=== PATIENT | male | born 1985 | race African-American/Black ===

== ENCOUNTER 2018-12-07 17:04 | Emergency (ER) | payer OTHER ==
[~2018-12-07] VITALS: Ht 160 cm; Wt 70.1 kg
--- NOTE | 2018-12-07 17:16 | PHYS DOC ---
Past History Smoking: Cigarettes (TIFFANIE ROCHA DO) Adult General Chief Complaint Chief Complaint: ALTERED MENTAL STATUS HPI HPI Patient is a 33-year-old male brought in by EMS due to being found under a park bench with altered mental status. EMS reports his fingerstick blood sugar was in the 100s. Patient responded to verbal stimuli. Patient denies any pain. Denies taking any alcohol or drugs. History is limited from the patient due to his altered mental status.[] (TIFFANIE ROCHA DO) HPI " Hey.. I was just sleeping under the park bench... I need to get back to the [facility]... I have a job I have to report to at [employer]... to keep my parole from being busted... you ve got to discharge me now..." 18:49 Hrs. (RCIHA FERNANDEZ MD) Review of Systems Review of Systems Constitutional: Denies fever or chills [] Eyes: Denies change in visual acuity, redness, or eye pain [] HENT: Denies nasal congestion or sore throat [] Respiratory: Denies cough or shortness of breath [] Cardiovascular: Denies chest pain or palpitations[] GI: Denies abdominal pain, nausea, vomiting, bloody stools or diarrhea [] : Denies dysuria or hematuria [] Musculoskeletal: Denies back pain or joint pain [] Integument: Denies rash or skin lesions [] Neurologic: Denies headache, focal weakness or sensory changes [] Endocrine: Denies polyuria or polydipsia [] All other systems were reviewed and found to be within normal limits, except as documented in this note. (TIFFANIE ROCHA DO) Family History Family History Non-contributory (RICHA FERNANDEZ MD) Current Medications Current Medications See Nursing for home meds. (RICHA FERNANDEZ MD) Allergies Allergies NKDA (RICHA FERNANDEZ MD) Physical Exam Physical Exam Constitutional: Well developed, well nourished, no acute distress, non-toxic appearance. [] HENT: Normocephalic, blood at right side of lower lip. Wound does not appear to cross the vermilion border. No evidence of intraoral laceration or loose teeth. bilateral external ears normal, TMs are clear, no blood or fluid, oropharynx moist, no oral exudates, nose normal. [] Eyes: PERRLA, EOMI, conjunctiva normal, no discharge. [] Neck: Patient in cervical collar due to altered mental status, no tenderness, supple, no stridor. [] Cardiovascular:Heart rate regular rhythm, no murmur [] Lungs & Thorax: Bilateral breath sounds clear to auscultation [] Abdomen: Bowel sounds normal, soft, no tenderness, no masses, no pulsatile masses. [] Skin: Warm, dry, no erythema, no rash. [] Back: No tenderness, no CVA tenderness. [] Extremities: No tenderness, no cyanosis, no clubbing, ROM intact, no edema. [] Neurologic: GCS of 13-E3 V4 M6, normal motor function, normal sensory function, no focal deficits noted. [] Psychologic: Affect FLAT, mood normal. [] (TIFFANIE ROCHA DO) EKG EKG EKG shows a sinus rhythm at 81 bpm, normal axis, QTC of 414 ms, no ST elevation. No old EKG available for comparison. Interpreted by me at 1717[] (TIFFANIE ROCHA DO) Radiology/Procedures Radiology/Procedures [] (TIFFANIE ROCHA DO) Impressions: My interpretation chest x-ray shows no acute cardio pulmonary changes no free air in the diaphragm. Some findings consistent with chronic lung disease e mphysema. CT head shows no shift, mass, edema, bleed, or fracture. There is findings of ethmoid sinusitis. Some mild reversible lordotic curve of the neck. No obvious fracture or dislocation. See formal report when available. (RICHA FERNANDEZ MD) Course & Med Decision Making Course & Med Decision Making Pertinent Labs and Imaging studies reviewed. (See chart for details) ED course: Patient arrived by EMS, was placed in our bed from their cot, and tolerated exam well. Cervical collar was left in place. At the time of this dictation laboratory and imaging results are pending. Patient care was endorsed to the oncoming, nighttime physician at 1800 with ultimate disposition pending.[] (TIFFANIE ROCHA DO) Course & Med Decision Making Impression- 1. Mental status change 2. Ethmoid sinusitis 3. Mild anemia 12.6 4. Tobacco Use Pt. demanding discharge the last 1/2 hour to keep from being " busted" on his parole status at [address] Pt. sinusitis will be treated with flonase and Keflex 500 tid. . Must follow up . Encouraged pt to stop smoking. Pt. currently A & O x4, no focal deficits. Denies hx of seizure disorder. (RICHA FERNANDEZ MD) Dragon Disclaimer Dragon Disclaimer This electronic medical record was generated, in whole or in part, using a voice recognition dictation system. (TIFFANIE ROCHA DO) Departure Departure: Scripts Cephalexin (KEFLEX) 500 Mg Capsule 500 MG PO TID for ethomoid sinusiitis. for 10 Days, BOT Prov: RICHA FERNANDEZ MD 12/07/18 Fluticasone Propionate (Flonase Allergy Relief) 9.9 Ml [place].susp 2 SPRAYS NS DAILY for ethomid sinus itis, #120 BOTTLE Prov: RICHA FERNANDEZ MD 12/07/18 Discharge Summary Visit Information Final Diagnosis Problems Medical Problems: (1) Ethmoid sinusitis Status: Acute (2) Mental status change resolved Status: Acute (RICHA FERNANDEZ MD) Brief Hospital Course Allergies Allergies Coded Allergies Type Severity Reaction Last Updated Verified No Known Drug Allergies 12/07/18 No Vital Signs Vital Signs Date Time Temp Pulse Resp B/P (MAP) Pulse Ox O2 Delivery O2 Flow Rate FiO2 12/07/18 19:15 81 16 119/79 (92) 97 Room Air 12/07/18 18:03 4.0 12/07/18 17:04 98.9 Lab Results Laboratory Tests Test 12/07/18 17:20 12/07/18 18:10 White Blood Count 4.3 x10^3/uL (4.0-11.0) Red Blood Count 4.09 x10^6/uL (4.30-5.70) Hemoglobin 12.6 g/dL (13.0-17.5) Hematocrit 38.0 % (39.0-53.0) Mean Corpuscular Volume 93 fL (79-100) Mean Corpuscular Hemoglobin 31 pg (25-35) Mean Corpuscular Hemoglobin Concent 33 g/dL (31-37) Red Cell Distribution Width 12.3 % (11.5-14.5) Platelet Count 252 x10^3/uL (140-400) Neutrophils (%) (Auto) 45 % (31-73) Lymphocytes (%) (Auto) 46 % (24-48) Monocytes (%) (Auto) 6 % (0-9) Eosinophils (%) (Auto) 3 % (0-3) Basophils (%) (Auto) 0 % (0-3) Neutrophils # (Auto) 1.9 x10^3uL (1.8-7.7) Lymphocytes # (Auto) 2.0 x10^3/uL (1.0-4.8) Monocytes # (Auto) 0.3 x10^3/uL (0.0-1.1) Eosinophils # (Auto) 0.1 x10^3/uL (0.0-0.7) Basophils # (Auto) 0.0 x10^3/uL (0.0-0.2) Prothrombin Time 9.7 SEC (9.4-11.4) Prothromb Time International Ratio 1.0 (0.9-1.1) Activated Partial Thromboplast Time 23 SEC (23-33) Sodium Level 141 mmol/L (136-145) Potassium Level 3.8 mmol/L (3.5-5.1) Chloride Level 104 mmol/L (98-107) Carbon Dioxide Level 29 mmol/L (21-32) Anion Gap 8 (6-14) Blood Urea Nitrogen 15 mg/dL (8-26) Creatinine 0.9 mg/dL (0.7-1.3) Estimated GFR (Cockcroft-Gault) 116.2 BUN/Creatinine Ratio 17 (6-20) Glucose Level 87 mg/dL (70-99) Calcium Level 9.4 mg/dL (8.5-10.1) Magnesium Level 2.0 mg/dL (1.8-2.4) Total Bilirubin 0.3 mg/dL (0.2-1.0) Aspartate Amino Transf (AST/SGOT) 17 U/L (15-37) Alanine Aminotransferase (ALT/SGPT) 31 U/L (16-63) Alkaline Phosphatase 57 U/L (46-116) Ammonia 24 mcmol/L (11-34) Troponin I Quantitative < 0.017 ng/mL (0-0.055) DT-Eiu-B-Type Natriuretic Peptide 11 pg/mL (0-124) Total Protein 7.5 g/dL (6.4-8.2) Albumin 3.8 g/dL (3.4-5.0) Albumin/Globulin Ratio 1.0 (1.0-1.7) Ethyl Alcohol Level < 10 mg/dL (0-10) Urine Collection Type Unknown Urine Color [place] Urine Clarity Cloudy Urine pH 6.0 Urine Specific [place] 1.020 Urine Protein Neg (NEG-TRACE) Urine Glucose (UA) Neg mg/dL (NEG) Urine Ketones (Stick) Neg mg/dL (NEG) Urine Blood Trace (NEG) Urine Nitrite Neg (NEG) Urine Bilirubin Neg (NEG) Urine Urobilinogen Dipstick 0.2 mg/dL (0.2 mg/dL) Urine Leukocyte Esterase Neg (NEG) Urine RBC 0 /HPF (0-2) Urine WBC 0 /HPF (0-4) Urine Squamous Epithelial Cells Occ /LPF Urine Bacteria 0 /HPF (0-FEW) Urine Opiates Screen Neg (NEG) Urine Methadone Screen Neg (NEG) Urine Barbiturates Neg (NEG) Urine Phencyclidine Screen Neg (NEG) Urine Amphetamine/Methamphetamine Neg (NEG) Urine Benzodiazepines Screen Neg (NEG) Urine Cocaine Screen Neg (NEG) Urine Cannabinoids Screen Neg (NEG) Urine Ethyl Alcohol Neg (NEG) Brief Hospital Course Mr. Aguila is a 33 old male who presented with hx of sleeping under park bench. Discharge to [facility]. Ethmoid Sinusitis. (RICHA FERNANDEZ MD) Discharge Information Condition at Discharge: Improved, Stable Disposition/Orders: D/C to Home Dischare Medications Current Medications Ceftriaxone Sodium 1 gm/ Sodium Chloride 50 ml @ 100 mls/hr 1X ONCE IV ; Start 12/07/18 at 18:45; Stop 12/07/18 at 19:14; Status DC Sodium Chloride 50 ml @ As Directed STK-MED ONCE .ROUTE ; Start 12/07/18 at 18:51; Stop 12/07/18 at 18:52; Status DC Ceftriaxone Sodium (Rocephin) 1 gm STK-MED ONCE .ROUTE ; Start 12/07/18 at 18:51; Stop 12/07/18 at 18:52; Status DC Ceftriaxone Sodium (Rocephin Im) 1 gm 1X ONCE IM Last administered on 12/07/18at 19:00; Start 12/07/18 at 19:15; Stop 12/07/18 at 19:16; Status DC Active Scripts Active Keflex (Cephalexin) 500 Mg Capsule 500 Mg PO TID 10 Days Flonase Allergy Relief (Fluticasone Propionate) 9.9 Ml [place].susp 2 Sprays NS DAILY (RICHA FERNANDEZ MD) Dragon Disclaimer This chart was dictated in whole or in part using Voice Recognition software in a busy, high-work load, and often noisy Emergency Department environment. It may contain unintended and wholly unrecognized errors or omissions. (RICHA FERNANDEZ MD) TIFFANIE ROCHA DO Dec 07, 2018 17:16 RICHA FERNANDEZ MD Dec 07, 2018 18:35
[2018-12-07 17:56] LABS: BASO % 0 % (0-3); EOS # 0.1 x10^3/uL (0.0-0.7); EOS % 3 % (0-3); HEMOGLOBIN 12.6 g/dL (13.0-17.5); LYMPH % 46 % (24-48); MEAN CORPUSCULAR HEMOGLOBIN 31 pg (25-35); MEAN CORPUSCULAR HGB CONC 33 g/dL (31-37); MEAN CORPUSCULAR VOLUME 93 fL (79-100); MONO # 0.3 x10^3/uL (0.0-1.1); MONO % 6 % (0-9); NEUT # 1.9 x10^3uL (1.8-7.7); NEUT % 45 % (31-73); PLATELET COUNT 252 x10^3/uL (140-400); RED BLOOD COUNT 4.09 x10^6/uL (4.30-5.70); RED CELL DISTRIBUTION WIDTH 12.3 % (11.5-14.5); WHITE BLOOD COUNT 4.3 x10^3/uL (4.0-11.0)
--- NOTE | 2018-12-07 17:58 | RAD ---
PORTABLE CHEST 1V History: Altered mental status Comparison: None. Findings: 2 AP portable views of the chest are submitted. Pericardial cardiac silhouette is somewhat prominent although appearance may be accentuated by technique and degree of inspiration. There is no significant pleural fluid, pneumothorax, lobar consolidation. Impression: 1. There is no significant infiltrate. Pericardial cardiac silhouette is somewhat prominent although findings could be accentuated by technique. Electronically signed by: Richard Mendoza MD (12/07/2018 5:55 PM) [facility]
[2018-12-07 18:08] LABS: ALBUMIN 3.8 g/dL (3.4-5.0); CALCIUM 9.4 mg/dL (8.5-10.1); CREATININE 0.9 mg/dL (0.7-1.3); GFR 116.2; POTASSIUM 3.8 mmol/L (3.5-5.1); TOTAL BILIRUBIN 0.3 mg/dL (0.2-1.0); TOTAL PROTEIN 7.5 g/dL (6.4-8.2)
--- NOTE | 2018-12-07 18:20 | RAD ---
CT head and cervical spine without contrast History: Altered mental status Technique: Noncontrast CT imaging was performed of the head and cervical spine. Multiplanar reconstruction images are submitted. Exposure: One or more of the following individualized dose reduction techniques were utilized for this examination: 1. Automated exposure control 2. Adjustment of the mA and/or kV according to patient size 3. Use of iterative reconstruction technique. Head CT Comparison: None Findings: There is mild motion degradation. No convincing acute extra-axial or parenchymal hemorrhage is identified. There is no significant intra-axial mass effect, midline shift, or extra-axial fluid collection. The rogel-white differentiation of the major vascular territories is preserved. The ventricles, sulci, and cisterns are within normal limits in size and configuration. Mastoid air cells are aerated. There is patchy moderate to severe ethmoid air cell mucosal thickening.There is no significant focal calvarial abnormality. Impression: 1. No acute intracranial abnormality is identified. 2. There is patchy moderate to severe ethmoid air cell mucosal thickening. Cervical spine CT Comparison: None Findings: No acute cervical spine fracture is identified. There is mild reversal of the lordotic curvature centered near C5-6. There is mild narrowing of the C3-4, C5-6, C6-7 intervertebral disc spaces. Vertebral body stature and AP alignment are within normal limits. Atlanto-axial distance is within normal limits. There is appropriate alignment of lateral masses of C1 relative to C2. Occipital condylar-C1 relationship is maintained. There is some mild paraseptal emphysema near the visualized lung apices greater on the right. Impression: 1. No acute cervical spine fracture is identified. 2. There is nonspecific mild reversal of the lordotic curvature. There is mild degenerative disc disease. 3. There is mild paraseptal emphysema near visualized lung apices. Electronically signed by: Richard Mendoza MD (12/07/2018 6:18 PM) [facility]
[2018-12-07 18:31] LABS: BARBITURATES NEG (NEG); BENZODIAZEPINES NEG (NEG); CANNABINOIDS NEG (NEG); COCAINE NEG (NEG); METHADONE NEG (NEG); OPIATES NEG (NEG); PHENCYCLIDINE NEG (NEG)
[2018-12-07 18:34] LABS: BACTERIA,URINE 0 /HPF (0-FEW); BILIRUBIN,URINE NEG (NEG); CLARITY,URINE CLOUDY; COLOR,URINE AMBER; GLUCOSE,URINE NEG (NEG); NITRITE,URINE NEG (NEG); RBC,URINE 0 /HPF (0-2); SQUAMOUS EPITHELIAL CELL,UR OCC /LPF; UROBILINOGEN,URINE 0.2 mg/dL (0.2 mg/dL); WBC,URINE 0 /HPF (0-4)
[2018-12-07 18:35] LABS: AMPHETAMINE/METHAMPHETAMINE NEG (NEG)
[2018-12-07] MEDS ORDERED: CEPH-264 PO (18:46)
[2018-12-07] MEDS ORDERED: FLUT9.9S NS (18:46)
[2018-12-07] MEDS ORDERED: cefTRIAXone SODIUM 1 GM VIAL ONE (18:51)
[2018-12-07] MEDS ORDERED: IV NORMAL SALINE 50ML 50 ML ONE (18:51)
[2018-12-07 19:15] VITALS: BP 119/79
[2018-12-07] MEDS ORDERED: cefTRIAXone IM 1 GM VIAL IM ONE (19:15)
--- NOTE | 2018-12-10 07:39 | EKG ---
[address] [address] Test Date: 2018-12-07 Test Time: 17:16:25 Pat Name: JOI DURAN Department: Room: Gender: M [employer]: : [id number] Requested By: TIFFANIE ROCHA Order Number: [id number] Reading MD: Measurements Intervals [place] Rate: 81 P: 43 OR: 144 QRS: 45 QRSD: 88 T: 13 QT: 356 QTc: 414 Interpretive Statements SINUS RHYTHM QRS(T) CONTOUR ABNORMALITY CONSIDER ANTEROLATERAL MYOCARDIAL DAMAGE POSSIBLY ABNORMAL ECG RI6.01 No previous ECG available for comparison
== END 2018-12-07 19:30 | disposition home or self-care (01) ==
LOC: ER 17:04
DX: J32.2 Chronic ethmoidal sinusitis (principal); R41.82 Altered mental status, unspecified; D64.9 Anemia, unspecified; F17.210 Nicotine dependence, cigarettes, uncomplicated
CPT/HCPCS: 36415; 70450; 71045; 72125; 80053; 80307; 81001; 82140; 83735; 83880; 84484; 85025; 85610; 85730; 87040; 93005; 96372; 99285; G0480; J0696